=== PATIENT | female | born 2000 | race Caucasian/White ===

== ENCOUNTER 2022-10-23 20:13 | Emergency (ER) | payer BC ==
[~2022-10-23] VITALS: Ht 162.6 cm; Wt 57.6 kg
[2022-10-23] MEDS ORDERED: OSEL75CA PO (22:03)
--- NOTE | 2022-10-23 22:11 | NUR ---
Patient discharged to home in stable condition. Written and verbal after care instructions given. Patient verbalizes understanding of instruction.
[2022-10-23 22:15] VITALS: BP 130/80
== END 2022-10-23 22:16 | disposition home or self-care (01) ==
LOC: ER 20:18
DX: B34.9 Viral infection, unspecified (principal); Z20.822 Contact with and (suspected) exposure to COVID-19
CPT/HCPCS: 99283; 87426; C9803